=== PATIENT | male | born 1955 | race Caucasian/White ===

== ENCOUNTER 2021-05-06 12:30 | Emergency (ER) | payer BC ==
[~2021-05-06] VITALS: Ht 182.9 cm; Wt 90.7 kg
[2021-05-06 14:13] LABS: HEMOGLOBIN 14.5 gm/dl (14.0-17.5); RED BLOOD COUNT 4.99 M/UL (4.20-5.50); WHITE BLOOD COUNT 9.1 K/UL (4.5-11.0)
[2021-05-06 14:41] LABS: BUN/CREATININE RATIO 12 (0-10)
== END 2021-05-07 08:41 | disposition short-term general hospital (02) ==
LOC: ER1 12:30
PROVIDERS: Physician Assistant Medical
DX: U07.1 COVID-19 (principal); J12.82 Pneumonia due to coronavirus disease 2019; I51.9 Heart disease, unspecified
CPT/HCPCS: 36415; 36600; 71045; 80053; 82550; 82553; 82803; 83874; 83880; 84439; 84443; 84484; 85025; 85379; 85610; 85730; 93005; 96374; 96376; 99284; J1644; Q9967